=== PATIENT | female | born 2000 | race Caucasian/White ===

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

== ENCOUNTER 2018-03-22 16:39 | Emergency (ER) | payer OTHER ==
[~2018-03-22] VITALS: Ht 157.5 cm; Wt 86.9 kg
[~2018-03-22 16:39] MED LIST changes: +FIORICET 50-301 EAC1 PO
[2018-03-22 17:12] LABS: HEMATOCRIT 41.5 % (36.0-46.0); HEMOGLOBIN 13.8 G/DL (11.9-15.5); MCH 28.2 PG (29.0-34.0); MCHC 33.3 G/DL (30.0-36.0); MCV 84.7 FL (83-99); PLATELET COUNT 276 K/uL (156-360); RBC DIS.WIDTH-CV 12.1 % (11.8-14.6); RBC DIS.WIDTH-SD 37.2 % (39-53); WHITE BLOOD COUNT 3.9 K/uL (4.1-10.2)
[2018-03-22 17:20] LABS: ALBUMIN 4.4 g/dL (3.2-4.8); CHLORIDE 108 mEq/L (99-109); POTASSIUM 4.2 mEq/L (3.7-5.4); SODIUM 141 mEq/L (136-147)
[2018-03-22 17:22] LABS: GLUCOSE 106 mg/dL (70-99); TOTAL PROTEIN 7.8 g/dL (6.4-8.3)
[2018-03-22 17:24] LABS: TOTAL BILIRUBIN 0.7 mg/dL (0.0-1.0)
[2018-03-22 17:26] LABS: ALKALINE PHOSPHATASE 99 IU/L (3-129); CREATININE 0.7 mg/dL (0.6-1.3); GFR ESTIMATE (CALCULATED) > 59 mL/min/
[2018-03-22 17:27] LABS: UREA NITROGEN (BUN) 13 mg/dL (9-23)
[2018-03-22 17:28] LABS: AST (GOT) 16 IU/L (2-34)
[2018-03-22 17:29] LABS: ALT (GPT) 30 IU/L (3-49)
[2018-03-22 17:34] LABS: QUANTITATIVE HCG < 4.0 MIU/ML
[2018-03-22] MEDS ORDERED: IMODIUM A-D2 M2 PO (19:04)
[2018-03-22] MEDS ORDERED: ZOFRAN ODT4 MG PO (19:04)
[2018-03-22 19:30] VITALS: BP 118/75
== END 2018-03-22 19:32 | disposition home or self-care (01) ==
LOC: EME 16:39
PROVIDERS: Nurse Practitioner Family
DX: A08.4 Viral intestinal infection, unspecified (principal); J45.909 Unspecified asthma, uncomplicated; Z85.528 Personal history of other malignant neoplasm of kidney; Z90.5 Acquired absence of kidney
CPT/HCPCS: 74177; 80053; 84702; 85027; 99281; 99285; J2405; J7030